=== PATIENT | male | born 1970 | race Hispanic/Latino ===

== ENCOUNTER 2018-03-25 22:07 | Inpatient (IN) | payer SELFPAY ==
[2018-03-25] MEDS ORDERED: Enoxaparin Sodium 40 MG/0.4 ML SYRINGE SC SCH (23:00)
[2018-03-25 23:34] LABS: CKMB 1.5 ng/mL (0-6.6); Troponin I Less than 0.010 ng/mL (< 0.028)
[2018-03-26] MEDS ORDERED: Ondansetron ODT 4 MG TAB SL PRN (00:54)
[2018-03-26] MEDS ORDERED: Ondansetron HCl/PF 4 MG/2 ML Vial IVP PRN (00:54)
[2018-03-26] MEDS ORDERED: Sodium Chloride 0.45% 1,000 ML IV SCH (01:00)
[2018-03-26 01:43] VITALS: BMI 24.8
[2018-03-26] MEDS ORDERED: Dextrose 5% in Water 1,000 ML IV PRN (03:33)
[2018-03-26] MEDS ORDERED: Dextrose 50% Abboject 50 ML SYRINGE SLOW IVP PRN (03:33)
[2018-03-26 06:07] LABS: #Lymphocytes 0.6 thou/uL (1.20-3.40); #Monocytes 0.1 thou/uL (0.11-0.59); #Neutrophils 5.8 thou/uL (1.40-6.50); %Basophils 0.1 % (0.0-1.0); %Eosinophils 0.1 % (0.0-10.0); %Lymphocytes 8.9 % (21.0-51.0); %Monocytes 1.8 % (0.0-10.0); %Neutrophils 89.2 % (42.0-75.0); Anion Gap 13 mmol/L (10-20); BUN (Urea Nitrogen) 14 mg/dL (8.9-20.6); Calc. Creatinine Clearance 131 mL/min (70-130); Calcium 8.9 mg/dL (7.8-10.44); Carbon Dioxide 20 mmol/L (22-29); Chloride 106 mmol/L (98-107); Estimated GFR-MDRD Greater than 90; Glucose 284 mg/dL (70-105); Hemoglobin 14.9 g/dL (14.0-18.0); Mean Corpuscular Hemoglobin 31.1 pg (27.0-31.0); Mean Corpuscular Volume 91.3 fL (78.0-98.0); Mean Platelet Volume 8.7 fL (7.4-10.4); Platelet Count 200 thou/uL (130-400); Potassium 4.2 mmol/L (3.5-5.1); Red Blood Cell (RBC) Count 4.78 mill/uL (4.70-6.10); Sodium 135 mmol/L (136-145); White Blood Cell (WBC) Count 6.5 thou/uL (4.8-10.8)
[2018-03-26] MEDS: HumaLOG 300 UNITS/3 ML VIAL SC PRN ×3 (06:29→21:07)
--- NOTE | 2018-03-26 11:34 | HP ---
CHIEF COMPLAINT: Shortness of breath. HISTORY OF PRESENT ILLNESS: This is a 47-year-old male with past medical history of diabetes mellitu s type 2, asthma, presented to the ED with shortness of breath which has been ongoing throughout the day of discharge. The patient went [facility] complain of shortness of breath and patient received alb uterol treatments x3, magnesium, Solu-Medrol, and a dose of Rocephin. The patient was transferred to our hospital. Per records, patient uses inhaler quite often and patient also reports using nebulize r at home, but during this exacerbation, none of this seemed to help the patient. Initially, the pat dory stated that he went to work, his inhaler had some dirt on it and he started using his inhaler af terward. That is where the symptoms started triggering, but in the morning, patient was having diffi culty with breathing on the day of admission. REVIEW OF SYSTEMS: Positive for shortness of breath, otherwise as documented in HPI. All other syst ems were reviewed and are negative. FAMILY HISTORY: Reviewed and noncontributory to this visit. PAST SURGICAL HISTORY: The patient has no past surgical history. PAST MEDICAL HISTORY: Refer to the HPI. PSYCHIATRIC HISTORY: No known psychiatric history. SOCIAL HISTORY: Patient denies alcohol use. The patient denies any drug abuse. Patient denies smok ing. ALLERGIES: No known drug allergies. CURRENT MEDICATIONS: The patient takes metformin 1000, albuterol sulfate and Proventil. PHYSICAL EXAMINATION: VITAL SIGNS: Blood pressure is 172/79, pulse 79, respiratory rate of 24, temperature 98.3, O2 sat 10 0 on BiPAP. GENERAL APPEARANCE: The patient is lying in bed with the at bedside. The patient does not appe ar to be in any distress. The patient is speaking full sentences. HEENT: Normocephalic, atraumatic. Pupils are equally round, react to light. Extraocular movements are intact. No scleral icterus. LUNGS: The patient has bilateral wheezes at the anterior lung campa and the posterior lung campa b ilaterally. The patient does have tight lungs. CARDIOVASCULAR: S1, S2, regular rate and rhythm. No murmurs, no gallops, no rubs appreciated. ABDOMEN: Nontender, nondistended. Positive bowel sounds in all quadrants. No peritoneal signs. No masses. No distention noted. BACK: Normal. EXTREMITIES: The patient has good upper extremity and lower extremity movement. NEUROLOGIC: No focal neurologic deficit noted. SKIN: Warm, dry, and intact. PSYCHIATRIC: Normal. The patient is alert and oriented x3. EMERGENCY DEPARTMENT COURSE: The patient received normal saline. LABORATORY DATA: Patient's WBC 6.5, hemoglobin 14.9, hematocrit 43.7, platelet 200. Sodium 135, pot assium 4.2, chloride 106, carbon dioxide 20, glucose 284. ASSESSMENT AND PLAN: 1. This is a 47-year-old male with past medical history of asthma, been admitted for asthma exacerba tion. The patient has received a dose of Solu-Medrol, magnesium, IV, DuoNeb treatment; however, the patient was not feeling well. The patient was transferred to our hospital. The patient was put on B iPAP. Because the patient is put on BiPAP, the patient has to be admitted to the IMCU. So, we are g oing to admit the patient to IMCU. We are going to put patient on maintenance Solu-Medrol. Once the patient gets better, we can discontinue BiPAP and patient can be downgraded. 2. Diabetes mellitus type 2. We will continue insulin sliding scale. We will try to monitor the pa tient's glucose very closely since the patient will be receiving steroids, the patient's glucose delfina g to be elevated. 3. Deep vein thrombosis and gastrointestinal prophylaxis.
--- NOTE | 2018-03-26 15:03 | CON ---
DATE OF CONSULTATION: 03/26/2018 CONSULTING PHYSICIAN: Dr. Louis. REASON FOR CONSULTATION: Asthma exacerbation. HISTORY OF PRESENT ILLNESS: This is a 47-year-old male who presented in the ER yesterday with increa sing shortness of breath and wheezing since it occurred 24 hours prior to admission. 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 He ordinarily is on Qvar and albuterol, but lost his Qvar inhaler. He has been using th e albuterol over 3 times daily. He is better since receiving treatment last night. He was briefly o n BiPAP, but that has been stopped. PAST MEDICAL HISTORY: 1. Asthma. 2. Diabetes mellitus type 2. PAST SURGICAL HISTORY: None. PSYCHIATRIC HISTORY: None. SOCIAL HISTORY: Nonsmoker, does not consume alcohol, does not use illicit drugs. He is currently go ing through a divorce. ALLERGIES: None. MEDICATIONS PRIOR TO ADMISSION: QVAR, albuterol, and metformin. REVIEW OF SYSTEMS: A 12-point review of systems otherwise negative. PHYSICAL EXAMINATION: VITAL SIGNS: Temperature 98.6, pulse 89, respirations 16, O2 sat 93% on room air, blood pressure 170 /75. GENERAL: He is awake and alert and in no distress. He is using no accessory muscle respiration. HEENT: Unremarkable. NECK: No adenopathy or JVD. LUNGS: He has a few expiratory wheezes bilaterally. CARDIAC: S1, S2 regular without murmur. ABDOMEN: Soft and nontender. EXTREMITIES: No clubbing, cyanosis, or edema. His chest x-ray shows no mass, effusion or infiltrate. LABORATORY DATA: Sodium 135, potassium 4.2, chloride 106, CO2 20, BUN 14, creatinine 0.8, glucose 44 7. White blood cell count 6.5, hematocrit 43.7, platelet count 200. ASSESSMENT: Asthma with exacerbation - no longer in respiratory failure and no longer in need of BiP AP. RECOMMENDATIONS: 1. Go ahead and start reducing the steroid dose because this is aggravating his blood sugar. 2. He will need patient assistance in order to get his pulmonary medications at the time of discharg e. I think he should probably be on a long-acting beta/inhaled corticosteroid such as Advair or Dule ra. 3. He is likely ready for discharge as soon as tomorrow morning.
[2018-03-26] MEDS: metFORMIN 500 MG TAB PO SCH (18:10)
[2018-03-26] MEDS: Insulin Regular 300 UNITS/3 ML VIAL SC PRN (18:11)
[2018-03-26] MEDS: Mometasone/Formoterol 120 PUFF INHALER INH SCH (19:25)
[2018-03-27] MEDS: Insulin Regular 300 UNITS/3 ML VIAL SC PRN ×3 (06:23→16:57)
[2018-03-27] MEDS: Mometasone/Formoterol 120 PUFF INHALER INH SCH (06:53)
[2018-03-27] MEDS: metFORMIN 500 MG TAB PO SCH ×2 (08:35→16:57)
--- NOTE | 2018-03-27 09:58 | PRG ---
DATE OF SERVICE: 03/27/2018 SUBJECTIVE: The patient is doing well, so he is no longer having shortness of breath. OBJECTIVE: VITAL SIGNS: Temperature is 98.9, pulse 65, respirations 20, O2 saturation 94% room air, and blood p ressure 101/65. HEENT: Unremarkable. NECK: No JVD. LUNGS: He has faint end expiratory wheezing. No accessory muscle use. CARDIAC: S1 and S2, regular. ABDOMEN: Soft. EXTREMITIES: No edema. LABORATORY DATA: No labs were done today. ASSESSMENT: 1. Asthma with exacerbation. 2. Transient hyperglycemia secondary to IV steroids. RECOMMENDATION: His IV steroids can be stopped. He can be sent home on a few more days of prednison e. I have written a prescription for him to be on Dulera at home in addition to his albuterol. He i s stable for discharge anytime.
[2018-03-27 16:48] VITALS: BP 111/70; TEMP 97.8
[2018-03-27] MEDS ORDERED: predniSONE 20 MG TAB PO SCH (17:00)
--- NOTE | 2018-03-28 02:44 | DIS ---
DATE OF ADMISSION: 03/25/2018 DATE OF DISCHARGE: 03/27/2018 DISCHARGE DIAGNOSES: 1. Acute asthma exacerbation. 2. Acute hypoxic respiratory failure secondary to #1, resolved. 3. Diabetes mellitus type 2. CONSULTATIONS: Dr. Cornejo with Pulmonology Service. PERTINENT LABORATORY AND X-RAY FINDINGS: Basic metabolic profile within normal limits. BNP 34, trop onin I negative x1. CBC within normal limits. Portable chest x-ray dated 03/25/2018, showed increas ed markings in the right lower lobe. HOSPITAL COURSE: Patient was admitted after presenting with increased shortness of breath in the con text of known asthma. The patient was initially hypoxemic, placed on BiPAP noninvasive mechanical ve ntilation after receiving bronchodilator therapy, magnesium, Solu-Medrol, and Rocephin. The patient continued on short course of BiPAP noninvasive mechanical ventilation, transitioning to nasal cannula oxygen in the intermediate care unit. The patient was evaluated by the Pulmonology Service with rec ommendations for general pulmonary supportive measures. The patient transitioned to prednisone 20 mg b.i.d. and Dulera 2 puffs b.i.d. The patient overall clinically stabilized, tolerating regular oral intake, ambulating without assistance or difficulty, and maintaining O2 saturations greater than 90% on room air. I have examined the patient at the time of discharge and discussed followup instructroxy thapa. The patient overall clinically stable and ready for discharge on 03/27/2018. DISCHARGE MEDICATIONS: 1. Albuterol sulfate nebulized solution 1 vial inhaled daily p.r.n. 2. Proventil HFA 1 puff inhaled q.i.d. p.r.n. 3. Metformin 1000 mg p.o. b.i.d. 4. Dulera 200/5 mcg 2 puffs inhaled b.i.d. 5. Prednisone 20 mg p.o. b.i.d. x3 days, followed by 20 mg p.o. daily x3 days. FOLLOWUP: The patient is to follow up with his primary care provider in [place], [place] in the nex t 7-10 days. CONDITION ON DISCHARGE: Stable. ACTIVITY: Ad marily. DIET: ADA. CODE STATUS: FULL. DISPOSITION: Home, 03/27/2018.
== END 2018-03-27 18:35 | disposition home or self-care (01) | DRG 189 ==
LOC: ERS 22:07 → IMCU/EMU 23:04 → T4-B 03-26 14:10
PROVIDERS: ADMIT Internal Medicine; ATTEND Internal Medicine
DX: J96.01 Acute respiratory failure with hypoxia (principal); J45.901 Unspecified asthma with (acute) exacerbation; Z79.84 Long term (current) use of oral hypoglycemic drugs; E11.65 Type 2 diabetes mellitus with hyperglycemia; T38.0X5A Adverse effect of glucocorticoids and synthetic analogues, initial encounter
CPT/HCPCS: 36415; 36416; 80048; 83880; 85025; 90471; 90732; 94660; 96360; A4216; G0009; J1815; J2920; J7506